=== PATIENT | female | born 1995 | race Caucasian/White ===

== ENCOUNTER 2021-07-10 19:36 | Inpatient (IN) | payer OTHER ==
[2021-07-10] VITALS (11 sets, daily range): BP systolic 105–128; BP diastolic 56–67
[~2021-07-10] VITALS: Ht 167.6 cm; Wt 86.9 kg
[2021-07-10] MEDS ORDERED: UNIS25TA3 PO (20:05)
[2021-07-10] MEDS ORDERED: IRON27TA2 PO (20:05)
[2021-07-10] MEDS ORDERED: PRENTAB9 PO (20:05)
[2021-07-10] MEDS ORDERED: OMEP10CASR PO (20:05)
[2021-07-10] MEDS ORDERED: ONDA40IN IV (20:05)
[2021-07-10] MEDS ORDERED: HOME MED LIST COMPLETE! XX SCH (20:10)
[2021-07-10] MEDS ORDERED: METHYLERGONOVINE MALEATE 0.2 MG/ML VIAL (J2210) IM PRN (20:30)
[2021-07-10] MEDS ORDERED: TRANEXAMIC ACID INJection 1,000 MG in NS 100 ML IV PRN (20:30)
[2021-07-10] MEDS ORDERED: OXYTOCIN INJ 10 UNITS/ML VIAL (J2590) IV PRN (20:30)
[2021-07-10] MEDS ORDERED: LR 1,000 ML IV SCH (20:30)
[2021-07-10] MEDS ORDERED: OXYTOCIN DRIP 30 UNITS in IV 1 EA IV PRN ×4 (20:30)
[2021-07-10] MEDS ORDERED: LACTATED RINGER'S 1000 ML IV ONE (20:30)
[2021-07-10 20:44] LABS: HEMATOCRIT 36.5 % (36.0-47.0); HEMOGLOBIN 12.5 g/dl (12.0-15.5); MEAN CORPUSCULAR HEMOGLOBIN 30.3 pg (27.0-33.0); MEAN CORPUSCULAR HGB CONC 34.2 g/dl (32.0-36.5); MEAN CORPUSCULAR VOLUME 88.4 fl (80.0-96.0); PLATELET COUNT, AUTOMATED 216 10^3/uL (150-450); RED BLOOD COUNT 4.13 10^6/uL (4.00-5.40); WHITE BLOOD COUNT 15.3 10^3/uL (4.0-10.0)
[2021-07-10] MEDS ORDERED: FENTANYL/ROPIVACAINE/NACL BAG 100 ML EPIDURAL SCH (22:05)
[2021-07-10] MEDS ORDERED: FENTANYL 2MCG/ML ROPIVACAINE 0.2% IN 0.9% NACL 100ML IVBAG As Ordered ONE (22:05)
[2021-07-10] MEDS ORDERED: LR 500 ML IV PRN (22:05)
[2021-07-10] MEDS ORDERED: ONDANSETRON 4MG/2ML VIAL IV PRN (22:05)
[2021-07-10] MEDS ORDERED: EPIDURAL/PCA KEYS XX PRN (22:05)
[2021-07-10] MEDS ORDERED: NALOXONE INJ 0.4MG/1ML VIAL (J2310 PER 1MG) IV PRN (22:05)
[2021-07-10] MEDS ORDERED: ePHEDrine SULFATE 25 MG/5 ML(5MG/ML) SYRINGE IVP PRN (22:05)
[2021-07-10] MEDS ORDERED: diphenhydrAMINE 50MG/ML VIAL (J1200) IV PRN (22:05)
[2021-07-11 00:17] VITALS: BP 113/64
[2021-07-11 00:21] LABS: CORD GAS ABE V -3.9; CORD GAS HCO3 V 20.6 MEQ/L; CORD GAS O2 SAT V 73.6 %; CORD GAS PH V 7.375 UNITS; CORD GAS PO2 V 32.1 mmHg; CORD GAS SBC V 20.7 MEQ/L; CORD GAS TCO2 V 21.7 MEQ/L
[2021-07-11 00:22] LABS: CORD GAS ABE A -4.5; CORD GAS HCO3 A 23.3 MEQ/L; CORD GAS O2 SAT A 30.8 %; CORD GAS PCO2 A 53.5 mmHg; CORD GAS PH A 7.256 UNITS; CORD GAS SBC A 19.2 MEQ/L; CORD GAS TCO2 A 24.9 MEQ/L
[2021-07-11] MEDS ORDERED: LR 1,000 ML IV SCH (00:40)
[2021-07-11] MEDS ORDERED: ACETAMINOPHEN 500 MG TAB PO PRN (00:40)
[2021-07-11] MEDS ORDERED: TRANEXAMIC ACID INJection 1,000 MG in NS 100 ML IV ONE (00:40)
[2021-07-11] MEDS ORDERED: METHYLERGONOVINE MALEATE 0.2 MG/ML VIAL (J2210) IM ONE (00:40)
[2021-07-11] MEDS ORDERED: ACETAMINOPHEN TAB 650MG DOSE (2X325MG) PO PRN (00:40)
[2021-07-11] MEDS ORDERED: ANUSOL HC CREAM 30GM TOP PRN (00:40)
[2021-07-11] MEDS ORDERED: OXYTOCIN DRIP 30 UNITS in IV 1 EA IV SCH ×4 (00:40)
[2021-07-11] MEDS ORDERED: OXYTOCIN INJ 10 UNITS/ML VIAL (J2590) IV ONE (00:40)
[2021-07-11] MEDS ORDERED: METHYLERGONOVINE MALEATE 0.2 MG TAB PO PRN (00:40)
[2021-07-11] MEDS ORDERED: DIBUCAINE 1% OINTMENT 30GM TOP PRN (00:40)
[2021-07-11] MEDS ORDERED: RHOGAM 300 MCG (1500 IU) INJ (J2790) IM SCH (00:40)
[2021-07-11] MEDS ORDERED: MOM 30ML SUSPENSION UDC PO PRN (00:40)
[2021-07-11 00:58] VITALS: BP 121/66
[2021-07-11 01:13] VITALS: BP 144/58
[2021-07-11 02:00] VITALS: BP 131/60
[2021-07-11 05:46] VITALS: BP 108/58
[2021-07-11] MEDS: IBUPROFEN 600MG TAB PO PRN ×2 (08:32→19:53)
[2021-07-11] MEDS: DOCUSATE SODIUM 100MG CAPSULE PO PRN (08:32)
[2021-07-11] MEDS: PRENATAL VITAMINS CHEWABLE TABLET PO SCH (08:32)
[2021-07-11 18:00] VITALS: BP 102/57
[2021-07-12] MEDS: DOCUSATE SODIUM 100MG CAPSULE PO PRN (05:21)
[2021-07-12] MEDS: IBUPROFEN 600MG TAB PO PRN (05:23)
[2021-07-12 06:10] VITALS: BP 111/70
[2021-07-12 07:50] LABS: HEMATOCRIT 36.6 % (36.0-47.0); HEMOGLOBIN 12.1 g/dl (12.0-15.5); MEAN CORPUSCULAR HEMOGLOBIN 30.4 pg (27.0-33.0); MEAN CORPUSCULAR HGB CONC 33.1 g/dl (32.0-36.5); PLATELET COUNT, AUTOMATED 229 10^3/uL (150-450); RED BLOOD COUNT 3.98 10^6/uL (4.00-5.40); WHITE BLOOD COUNT 14.5 10^3/uL (4.0-10.0)
[2021-07-12] MEDS: PRENATAL VITAMINS CHEWABLE TABLET PO SCH (08:43)
[2021-07-13] MEDS ORDERED: MEASLES,MUMPS,RUBELLA VACCINE INJ (MMR-II) (90707) SC ONE (09:00)
== END 2021-07-12 13:56 | disposition home or self-care (01) | DRG 807 ==
LOC: M LDO 19:36 → M LDI 20:27 → M OBS 07-11 02:01
PROVIDERS: ADMIT Obstetrics & Gynecology; ATTEND Obstetrics & Gynecology
PROC: 10E0XZZ Delivery of Products of Conception, External Approach (ICD-10-PCS; principal; 2021-07-11)
DX: O48.0 Post-term pregnancy (principal); Z37.0 Single live birth; Z3A.40 40 weeks gestation of pregnancy